=== PATIENT | female | born 1980 | race Asian ===

== ENCOUNTER 2019-10-23 16:13 | Inpatient (IN) | payer OTHER ==
[2019-10-23] MEDS ORDERED: CARBOPROST TROME 250 MCG/ML IM PRN (16:15)
[2019-10-23] MEDS ORDERED: METHYLERGONOVINE 0.2MG/ML AMP IM PRN (16:15)
[2019-10-23] MEDS ORDERED: PROMETHAZINE INJ 25 MG/ML AMP IM PRN (16:15)
[2019-10-23] MEDS ORDERED: Ringers Lactate 1,000 ML IV PRN (16:15)
[2019-10-23] MEDS ORDERED: BUTORPHANOL 1 MG/ML INJ IV PRN (16:15)
[2019-10-23] MEDS ORDERED: ZOLPIDEM TARTRATE 10 MG TABLET PO PRN (16:17)
[2019-10-23] MEDS ORDERED: MAGNES/ALUMIN/SIMET 30ML UCUP PO PRN (16:37)
[2019-10-23] MEDS ORDERED: OXYTOCIN/LR 20 UNIT/1,000 ML BAG IV SCH (17:00)
[2019-10-23] MEDS ORDERED: miSOPROStoL 100 MCG TAB VAG SCH (17:00)
[2019-10-23] MEDS ORDERED: Ringers Lactate 1,000 ML IV SCH (17:00)
[2019-10-23 17:21] LABS: Absolute Lymphocytes (CBC) 1.9 K/uL (0.7-4.9); Basophils % 0.4 % (0-1.3); Hematocrit 40.8 % (36.0-45.0); Lymphocytes % 19.2 % (15.3-44.8); MPV 7.9 fL (7.6-11.3); RBC Red Blood Cell Count 4.34 M/uL (3.86-4.86); Urine Appearance CLEAR; Urine Bilirubin NEGATIVE (NEG); Urine Blood NEGATIVE (NEG); Urine Color YELLOW; Urine Glucose NEGATIVE (NEG); Urine Protein NEGATIVE (NEG); Urine Specific Gravity <=1.005 (1.005-1.030); Urine Urobilinogen 0.2 mg/dL (0.2-1.0); Urine pH 7.5 (5.0-7.0)
[2019-10-23 17:37] LABS: Urine Bacteria <20 /HPF (<20); Urine Culture Reflex Order NOT NEEDED; Urine RBC <5 /HPF (NONE SEEN)
[2019-10-23 17:59] VITALS: BMI 27.1
--- NOTE | 2019-10-23 21:12 | PREOPHP ---
Date of Admission: 10/23/2019 A 39-year-old, primigravida, 39 weeks 2 days, for Cytotec induction. Full discussion about Cytotec r isks and possible complications patient knows because she has an unfavorable cervix that the chance o f is higher. She is an elderly primigravida. The baby by ultrasound thought to only be 5. 5 to 6 pounds, by clinical estimate we think is bigger. In any event, the patient is a very small wo man and wants to try delivery at this point. She knows that the risk of is higher because o f unfavorable cervix, but she does not wish to wait pass the due date. She is 1 cm, 50% effaced, sof t cervix, but the vertex is -2 to -3 station. FHT is normal, reactive. Vital signs all stable, 50 m cg of Cytotec inserted. We will insert another 50 mcg in 6 hours and a third half tablet, 50 mcg for the third dose if needed. Anticipate delivery sometime tomorrow. NONI/AIMEE Voice ID: [id number]
--- NOTE | 2019-10-24 09:34 | PN ---
Patient had _analgesics during the night but did get some sleep. She is now 1-1 /2. Vertex is better applied at -1 station. Rupture of membranes, light flex of meconium but mostly clear fluid. FHT is normal, reactive. Full discussion with patient and , anticipate a more active labor at this point. Estimated weight of baby according to ultrasound is 6 pounds or less. Clinical estimate is about the 7 pound range. She is not a large woman but we are now entering into the trial of labor to see if she can deliver vaginally. Full discussion, this has been discussed numerous times in the office. NONI/AIMEE Voice ID: [id number] Report ID: [id number] ECHO
[2019-10-24] MEDS ORDERED: METHYLERGONOVINE 0.2MG/ML AMP IM ONE (10:54)
[2019-10-24] MEDS ORDERED: CARBOPROST TROME 250 MCG/ML IM ONE (10:54)
[2019-10-24] MEDS ORDERED: LIDOCAINE 1% MPF 30 ML VIAL ONE ×2 (10:54→18:47)
--- NOTE | 2019-10-24 15:19 | PN ---
Patient has progressed to 5.5 cm, 100% effaced, vertex, almost +1 station. We have shut off the Fadi raul, which was only on 6 milliunits. She is cece every 3 to 4 minutes. Scalp electrode has b een placed. We were seen decelerations, but only to the 70 to 80 range in quick recovery and good va riability. At this point, patient has been wishes to continue with vaginal delivery. I think she is getting ready to make more rapid progress. We saw the very small amount of meconium with rupture of membranes. We will have a suction trap ready at the time of delivery. NONI/MODTrina Voice ID: [id number] Report ID: [id number]
--- NOTE | 2019-10-24 16:13 | PN ---
Patient is now 7 cm, 100% effaced, vertex, +1 station at least. Baby looks much better. On the gilma tor now, she is cece on her own. Anticipate delivery reasonably soon. NONI/AIMEE Voice ID: [id number] Report ID: [id number]
[2019-10-24] MEDS ORDERED: BISACODYL 10 MG RECTAL SUPP RECT PRN (16:36)
[2019-10-24] MEDS ORDERED: DIPHENHYDRAMINE 25 MG TAB/CAP PO PRN (16:36)
[2019-10-24] MEDS ORDERED: ACETAMINOPHEN 500 MG TAB PO PRN (16:36)
[2019-10-24] MEDS ORDERED: Oxycodone HCl/Acetaminophen 1 TAB TAB PO PRN ×2 (16:36)
[2019-10-24] MEDS ORDERED: DOCUSATE NA/SENNA CONC 1 TAB PO PRN (16:36)
[2019-10-24] MEDS ORDERED: OXYTOCIN/LR 20 UNIT/1,000 ML BAG IV SCH (17:00)
--- NOTE | 2019-10-24 17:34 | PN ---
Patient is approximately 9-1/2 now. Small minus cervix at the 12 o'clock area, but patient does not have an overwhelming urge to push right now. +1 to +2 station. Heart tones have been looking much b joshua since Pitocin has been discontinued. Within the next 30 minutes, I think patient will get the urge to start pushing. Right now, she says she has a small urge, but nothing overwhelming at this po int. NONI/AIMEE Voice ID: [id number] Report ID: [id number]
[2019-10-24] MEDS ORDERED: Ringers Lactate 1,000 ML IV ONE (17:47)
[2019-10-24 22:18] LABS: RPR (Rapid Plasma Reagin) NON-REACT (NON-REACT)
--- NOTE | 2019-10-25 02:24 | OP ---
Surgeon: Ayaan Mosquera MD A 39-year-old primigravida, 39 weeks 2 days, had Cytotec 50 mcg x3 every 6 hours. This morning advan lyn 2.5 cm, 50% effaced, vertex, -1 station. Rupture of membranes, clear fluid with very small puneet s of meconium basically still though term fluid. During the labor, she received Stadol 1 mg IV, Phen ergan 25 mg IM. Otherwise, used Lamaze breathing techniques to best advantage. She started on light Pitocin augmentation. This was discontinued and then restarted. When it was restarted, the patient was on no more than 3 milliunits. Second stage approximately 30-45 minutes. Spontaneous vaginal de livery of a 6-pound 4-ounce male, Apgars 9 and 9. Second-degree midline laceration simulating episio odilon, repaired with 2-0 chromic under local infiltration. A single [id number] stitch on the rig ht side of the introitus, very small first-degree laceration there. Estimated blood loss 300 mL or l ess. Rh positive, immune to Rubella. Negative beta strep screen. Tolerated all procedures well. Final Diagnosis: Term intrauterine , 39 weeks 2 days, Cytotec labor induction, vaginal deli very, elderly primigravida. NONI/TIARAL Voice ID: [id number] Report ID: [id number]
[2019-10-25] MEDS: IBUPROFEN 600 MG TAB PO PRN ×2 (08:50→18:33)
[2019-10-25 16:52] VITALS: BP 114/65; TEMP 98.6
--- NOTE | 2019-10-26 01:37 | DS ---
Date of Discharge: 10/25/2019 History: A 39-year-old, primigravida, 39 weeks and 2 days. Cytotec inserted 50 mcg x3. Patient antony t to an active labor pattern. Rupture of membranes the next morning at 1.5 cm. During the labor, mark dos santos received Stadol 1 mg IV, 25 mg Phenergan IM x1. Otherwise, use Lamaze breathing techniques to best advantage. Second stage of 30-35 minutes, spontaneous vaginal delivery of a 6-pound 4-ounce mal e infant. Midline second-degree laceration simulating episiotomy, repaired with 2-0 chromic under lo abelardo infiltration. Schultze delivery of the placenta was inspected and noted to be intact and normal. Less than 300 mL blood loss. Rh positive, immune to Rubella. Negative beta strep screen. Postpar jessica, patient is afebrile, ambulating, voiding. Lochia is normal. She will be dismissed later today. Requests no analgesics on dismissal. She has had her Tdap immunization. To report back to my offi ce in 6 weeks. To report any temperature elevation of 100 degrees or greater, severe pain, heavy ble eding, or any other type of abnormalities. Final Diagnoses: Term intrauterine at 39 weeks 2 days, Cytotec for labor induction. Vagin al delivery. Delivery at 39 weeks and 3 days. Elderly primigravida. NONI/AIMEE Voice ID: [id number] Report ID: [id number]
[2019-10-27 04:48] LABS: HBsAG Nonreactive (Nonreactive)
== END 2019-10-25 18:44 | disposition home or self-care (01) | DRG 807 ==
LOC: 2ND-WC 16:13
PROVIDERS: ADMIT Specialist; ATTEND Specialist
PROC: 3E0P7VZ Introduction of Hormone into Female Reproductive, Via Natural or Artificial Opening (ICD-10-PCS; 2019-10-23)
PROC: 10907ZC Drainage of Amniotic Fluid, Therapeutic from Products of Conception, Via Natural or Artificial Opening (ICD-10-PCS; principal; 2019-10-24)
PROC: 10E0XZZ Delivery of Products of Conception, External Approach (ICD-10-PCS; 2019-10-24)
PROC: 0KQM0ZZ Repair Perineum Muscle, Open Approach (ICD-10-PCS; 2019-10-24)
DX: O70.1 Second degree perineal laceration during delivery (principal); Z37.0 Single live birth; Z3A.39 39 weeks gestation of pregnancy
CPT/HCPCS: 36415; 81001; 85025; 86592; 86901; 87340; G0433; J0595; J2210; J2550; J2590; J7120